=== PATIENT | female | born 1995 | race Caucasian/White ===

== ENCOUNTER 2018-09-24 12:52 | Emergency (ER) | payer BC, OTHER ==
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
[2018-09-24 13:23] VITALS: BP 153/93; PULSE 98; RESP 20; TEMP 98.7; O2SAT 97
--- NOTE | 2018-09-24 14:15 | RAD ---
Date of service: 09/24/2018 PROCEDURE: Left Ankle Radiographs. HISTORY: r/o fracture COMPARISON: None available. FINDINGS: BONES: There is an acute transverse mildly displaced fracture in the medial malleolus an acute nondisplaced impacted fracture in the lateral malleolus. Bone alignment and mineralization are normal. There is an os trigonum. JOINTS: There is a small joint effusion. Ankle mortise maintained. Talar dome intact SOFT TISSUES: There is moderate periarticular soft tissue swelling. OTHER FINDINGS: None. IMPRESSION: Acute transverse mildly displaced fracture in the medial malleolus and acute nondisplaced impacted fracture in the lateral malleolus. Moderate periarticular soft tissue swelling and small joint effusion.
== END 2018-09-24 18:12 | disposition home or self-care (01) ==
LOC: C.ER 12:52
DX: S82.842A Displaced bimalleolar fracture of left lower leg, initial encounter for closed fracture (principal); W19.XXXA Unspecified fall, initial encounter; Y92.89 Other specified places as the place of occurrence of the external cause

== ENCOUNTER 2018-10-04 08:44 | Day surgery (SDC) | payer BC ==
[2018-10-04 09:41] VITALS: BMI 35.5
[2018-10-04 09:52] LABS: BASO # 0.1 K/uL (0.0-0.2); BASO % 1.2 % (0.0-2.0); EOS # 0.3 K/uL (0.0-0.7); EOS % 3.4 % (0.0-4.0); HEMOGLOBIN 13.7 g/dL (11.0-16.0); LYMPH # 2.2 K/uL (1.0-4.3); LYMPH % 24.5 % (20.0-40.0); MEAN CELL VOLUME 82.4 fL (81.0-99.0); MEAN CORPUSCULAR HEMOGLOBIN 27.6 pg (27.0-31.0); MEAN CORPUSCULAR HGB CONC 33.5 g/dL (33.0-37.0); MEAN PLATELET VOLUME 9.3 fL (7.2-11.7); MONO # 0.7 K/uL (0.0-0.8); MONO % 8.2 % (0.0-10.0); NEUT # 5.6 K/uL (1.8-7.0); NEUT % 62.7 % (50.0-75.0); RBC 4.96 Mil/uL (3.80-5.20); RED CELL DISTRIBUTION WIDTH 13.8 % (11.5-14.5)
[2018-10-04 10:16] LABS: BLOOD UREA NITROGEN 16 mg/dL (7-17); CALCIUM 9.4 mg/dl (8.6-10.4); GFR NON-AFRICAN AMERICAN > 60
[2018-10-04] MEDS ORDERED: Bupivacaine HCl 0.5% PF (10 ml) Inj ONE (10:47)
[2018-10-04] MEDS ORDERED: Lidocaine 2% MPF (5 ml) Inj ONE (10:47)
[2018-10-04] MEDS ORDERED: ceFAZolin 1 gm in NS 2 GM/200 ML BAG IVPB ONE (10:48)
[2018-10-04] MEDS ORDERED: Propofol 10 mg/ml Inj (20 ML) ONE (10:54)
[2018-10-04] MEDS ORDERED: Midazolam 2 MG/2 ML VIAL ONE (10:54)
[2018-10-04] MEDS ORDERED: Bupivacaine Liposomal Inj 20 ml INJ ONE (13:05)
[2018-10-04] MEDS ORDERED: Morphine 4 MG/ML VIAL ONE (13:07)
--- NOTE | 2018-10-04 13:38 | PCM.SURG1 ---
Surgeon's Initial Post Op Note - Surgeon's Notes Surgeon: Dr. Shabana Shin [employer]: Dr. Meera Bautista DPM PGY-3, Dr. Nettie Bashir DPM PGY-3, Dr. Joshua Ascencio Type of Anesthesia: General Endo, General LMA Anesthesia Administered By: Dr. Lucio Pre-Operative Diagnosis: left ankle bimalleolar fracture Operative Findings: see dictation Post-Operative Diagnosis: same Operation Performed: left ankle ORIF Specimen/Specimens Removed: none Estimated Blood Loss: EBL {In ML}: 15 Blood Products Given: N/A Drains Used: No Drains Post-Op Condition: Good Date of Surgery/Procedure: 10/04/18 Time of Surgery/Procedure: 13:38
[2018-10-04] MEDS ORDERED: Oxycodone/Acetaminophen 5/325 mg Tab PO PRN ×2 (13:39)
[2018-10-04] MEDS: HYDROmorphone 0.5 mg/0.5 ml ISec IVP PRN ×2 (13:48→13:58)
[2018-10-04] MEDS ORDERED: HYDROmorphone 0.5 mg/0.5 ml ISec ONE (13:50)
[2018-10-04] MEDS ORDERED: Ropivacaine 0.5% PF (20 ml) inj INJ ONE (14:49)
--- NOTE | 2018-10-04 15:07 | PCM.ANESB2 ---
Popliteal Nerve Block - Popliteal Nerve Block Date of Procedure: 10/04/18 Anesthesiologist: Marybel Pre-Procedure Diagnosis: s/p left ankle ORIF Post-Procedure Diagnosis: same Procedure Performed: Popliteal Nerve Block Left - Procedure Popliteal Nerve Block: This procedure was explained to the patient that it is for post-operative pain management. Consent was obtained after a thorough discussion with the patient regarding the benefits and possible complications of local anesthetic block of the sciatic nerve at the popliteal level. The patient was brought to the PACU and monitors are applied. Time-out was held with the circulating nurse to confirm the correct surgery and the appropriate block. After applying oxygen by nasal cannula, patient's operative leg was gently raised and supported and the groove in between the biceps femoris and vastus lateralis muscles was carefully palpated. The skin approximately 8cm above the popliteal crease was then marked. The ultrasound transducer was then applied to the posterior thigh approximately 8cm above the popliteal crease in the transverse plane and the sciatic nerve before its division was visualized lateral to the popliteal artery and in between the bicep femoris and semimembranosus/semitendinosus muscles. After identification, the lateral portion of the thigh was prepped with Chloraprep. At this point, a # 21 gauge Stimuplex insulated 4 inch needle was inserted into pre-marked area and advanced in a perpendicular direction. The needle was inserted above the ultrasound transducer in-plane towards the sciatic nerve in a [id number] direction. Needle advancement was performed carefully under direct ultrasound visualization. Nerve stimulator was used and dorsiflexion of the left foot was elicited at a current of 0.5 MA. After repeated negative aspiration, 2cc of 0.5% ropivacaine was injected and this was flowed with 28cc of 0.5% Ropivacaine. Under ultrasound guidance the local anesthetics were observed surrounding sciatic nerve . The needle was removed intact and sterile dressing was applied. The patient tolerated the popliteal nerve block well with stable vital signs.
--- NOTE | 2018-10-04 15:23 | RAD ---
PROCEDURE: Left Ankle Radiographs. HISTORY: s/p left ankle sx COMPARISON: Left ankle radiographs performed 09/24/18 FINDINGS: Images are obtained through a cast which obscures osseous detail. Postsurgical changes of the distal tibia and fibula with metallic hardware present. Soft tissue swelling. No acute displaced fracture or dislocation evident. Alignment appears satisfactory. IMPRESSION: Postop ankle as above.
[2018-10-04 15:49] VITALS: RESP 16; TEMP 97.6
--- NOTE | 2018-10-04 15:50 | RAD ---
Date of service: 10/04/2018 PROCEDURE: Intraoperative Fluoroscopy. HISTORY: Left ankle fracture FINDINGS: Fluoroscopic assistance was provided for left ankle open reduction internal fixation. Please refer to the operative report from [facility] Stevenson.
[2018-10-04 17:16] VITALS: BP 115/55; PULSE 96; O2SAT 98
--- NOTE | 2018-10-05 04:07 | OP ---
PROCEDURE DATE: 10/04/2018 PREOPERATIVE DIAGNOSIS: Left ankle bimalleolar fracture. POSTOPERATIVE DIAGNOSIS: Left ankle bimalleolar fracture. PROCEDURE PERFORMED: Left ankle open reduction and internal fixation. SURGEON: Shabana Shin DPM SOFTWARE ENGINEER SALES: Meera Bautista DPM, PGY-3; Nettie Bashir DPM, PGY-3; Joshua Waller DPM, PGY-2. ANESTHESIOLOGIST: Dr. Lucio. ANESTHESIA: General with popliteal block. INDICATIONS: The patient is a 22-year-old female with the above-mentioned diagnosis. The patient has been treated by Dr. Shin in our office on outpatient basis. She exhausted multiple forms of conservative treatment. The patient seeks surgical intervention at this time. All risks, benefits, and possible complications of proposed procedure have been explained to the patient at length. The patient verbalized understanding and wishes to proceed. All questions were answered. No guarantees were given nor implied. Consent was signed. N.p.o. status was confirmed prior to bringing the patient to the operating room. OPERATIVE PROCEDURE: The patient was brought into the operating room, placed on the operating table in a supine position. A well-padded thigh tourniquet was applied to the patient's left thigh. Once general anesthesia was achieved, the left lower extremity was then prepped and draped in the usual sterile manner and the procedure began. PROCEDURE #1: Left ankle open reduction and internal fixation. Attention was directed to the lateral aspect of the left ankle where a fibular fracture was present. At this time, with the use of #15 blade, approximately 7 cm in length linear incision was created over the anterior aspect of the fibula of the left lower extremity. Incision was carried from proximal to distal to the level of the malleolus. Upon completion of the incision, all neurovascular structures were retracted, ligated, and cauterized as necessary. The initial incision was created from the dermal layer of the periosteum. At this time, with the use of Oxford elevator, the periosteum was dissected free from the osseous attachments and the fibular fracture was noted. Upon dissection of the surrounding soft tissue from the fracture site, the fracture fragment was distracted distally and a bone clamp was utilized to clean and remove the hemorrhagic tissue from the fracture site. The surgical site was then irrigated with copious amounts of normal sterile saline. At this time with the use of K-wires, the fracture fragment was stabilized and a 3.5 screw was placed across the fragment. Upon establishment of corrected length of the fibula, it was clamped utilizing clamp and a plate was placed over the fracture site and was secured with two 1.125 K-wires. Utilizing fluoroscopy, the plate was noted to be placed across the fracture site which was a 7-hole Synthes one-third tubular plate. The plate was fixated with the combination of 3.5 cortex screws and 2.7 locking screws. Upon completion of the fibular reduction, the surgical site was then irrigated with copious amounts of normal sterile saline. Attention was then directed to the medial aspect of the foot where the deltoid ligament and medial malleolar fracture was located. Utilizing the #15 blade, a linear incision was created from superior to inferior, approximately 4 cm in length over the fracture fragment. The incision was deepened to the subcutaneous tissue with care being taken to identify and retract all vital neurovascular structures. All bleeders were cauterized and ligated as necessary. Attention was then directed to the fracture fragment where a periosteal incision was made and the periosteum was retracted using a Oxford elevator. Next, the fragment was stabilized with a 1.125 K-wire. Next, 2.7 drill was utilized and a 4.0 partially threaded cannulated screw measuring 36 mm was placed across the fracture site with excellent compression noted. Attention was then directed to the remaining fragments of the deltoid ligament which were then repaired utilizing a SutureTak and suture tape. Next, utilizing intraoperative fluoroscopy, the guidewire from the [employer] TightRope system was passed to the lateral aspect of the fibular plate through the entirety of the fibula and through the medial and lateral cortices of the tibia and exiting the medial aspect of the patient's left ankle. Proper positioning of the guidewire was verified utilizing intraoperative fluoroscopy. Next, the cannulated drill bed from the [employer] TightRope system was placed over the guidewire and the medial and lateral cortices of the fibula were drilled and the medial and lateral cortices of the tibia were drilled. The drill bit and guidewire were then removed from the surgical field. Next, the needle from the TightRope system was packed through the lateral and medial cortices of the fibula and the lateral and medial cortices of the tibia, and exiting out the medial aspect of the patient's left ankle. The needle was then cut free from the suture and the medial and lateral buttons from the [employer] TightRope were then manipulated against the plate. The excess suture was then cut. The surgical site was then irrigated with copious amounts of normal sterile saline and Intercept. The surgical site was then closed deep with 2-0, 3-0, and 4-0 Vicryl; and the skin was reapproximated with #4-0 Prolene. A postoperative injection consisting of 10 mL of 0.5% Marcaine plain was given in a local block fashion to the patient's left foot. Postoperative dressings included Betadine, Adaptic, 4 x 4, Titus, Kerlix, and a well-padded AO splint. POSTOPERATIVE CONDITION: The patient tolerated the anesthesia and procedure well with no apparent complications or complaints. The patient was escorted from the operating room to the recovery room. Vital signs stable and neurovascular structures intact. The patient will follow up with Dr. Shin in her office on an outpatient basis. Meera Bautista DPM Shabana Shin DPM [id number]
== END 2018-10-04 17:11 | disposition home or self-care (01) ==
LOC: C.SDS 08:44
PROVIDERS: ATTEND Podiatrist Foot & Ankle Surgery
DX: S82.842A Displaced bimalleolar fracture of left lower leg, initial encounter for closed fracture (principal); S93.432A Sprain of tibiofibular ligament of left ankle, initial encounter; X58.XXXA Exposure to other specified factors, initial encounter
CPT/HCPCS: 27695; 27814; 36415; 73610; 80048; 84703; 85025; C1713; C1769; J0690; J1170; J1885; J2250; J2270; J2405; J2704; J3010